=== PATIENT | male | born 1990 | race American Indian/Alaskan Native ===

== ENCOUNTER 2017-12-31 04:06 | Emergency (ER) | payer OTHER ==
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
[2017-12-31] MEDS ORDERED: MOTRIN PO ONE (06:41)
[2017-12-31] MEDS ORDERED: FLEXERIL PO ONE (06:41)
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
[2017-12-31 08:16] VITALS: BP 140/78
== END 2017-12-31 08:15 | disposition home or self-care (01) ==
LOC: ED 04:06
DX: S39.012A Strain of muscle, fascia and tendon of lower back, initial encounter (principal); S76.012A Strain of muscle, fascia and tendon of left hip, initial encounter; S86.912A Strain of unspecified muscle(s) and tendon(s) at lower leg level, left leg, initial encounter; V89.2XXA Person injured in unspecified motor-vehicle accident, traffic, initial encounter; Y93.89 Activity, other specified; Y92.410 Unspecified street and highway as the place of occurrence of the external cause; Y99.8 Other external cause status
CPT/HCPCS: 72100; 99283